=== PATIENT | male | born 1950 | race Caucasian/White ===

== ENCOUNTER 2023-01-08 11:55 | Emergency (ER) | payer OTHER ==
[2023-01-08 12:16] VITALS: BP 110/67; PULSE 63; RESP 16; TEMP 98.4; BMI 22.4
[2023-01-08] MEDS ORDERED: morphine CARPU-JECT 4 MG/1 ML DISP.SYRIN IM ONE (12:31)
[2023-01-08] MEDS ORDERED: morphine SULFATE 4 MG/ML VIAL ONE (12:34)
== END 2023-01-08 16:24 | disposition home or self-care (01) ==
LOC: FER 11:55
PROC: 2W38X1Z Immobilization of Right Upper Extremity using Splint (ICD-10-PCS; principal; 2023-01-08)
PROC: 3E023GC Introduction of Other Therapeutic Substance into Muscle, Percutaneous Approach (ICD-10-PCS; 2023-01-08)
DX: S42.321A Displaced transverse fracture of shaft of humerus, right arm, initial encounter for closed fracture (principal); W11.XXXA Fall on and from ladder, initial encounter
CPT/HCPCS: 73030-TC-RT-FY; 73060-TC-RT-FY; 99285-25

== ENCOUNTER 2023-01-14 06:11 | Day surgery (SDC) | payer OTHER ==
[2023-01-11 14:56] VITALS: BMI 22.1
[2023-01-14] MEDS ORDERED: MIDAZOLAM HCL 2 MG/2 ML SINGLE DOSE VIAL ONE (07:03)
[2023-01-14] MEDS ORDERED: ceFAZolin SODIUM 1 GM VIAL ONE ×2 (07:03)
[2023-01-14] MEDS ORDERED: DEXAMETHASONE SOD PHOSPHATE 4 MG/1 ML VIAL ONE (07:03)
[2023-01-14] MEDS ORDERED: KETOROLAC TROMETHAMINE 30 MG/1 ML VIAL ONE (07:03)
[2023-01-14] MEDS ORDERED: PROPOFOL 20 ML ONE (07:03)
[2023-01-14] MEDS ORDERED: ONDANSETRON 4 MG/2 ML VIAL ONE (07:03)
[2023-01-14] MEDS ORDERED: BUPIVACAINE HCL/PF 0.5% (5 MG/ML) 30 ML VIAL IJ ONE (07:18)
[2023-01-14] MEDS ORDERED: ACETAMINOPHEN INJECTION 100 ML IVPB ONE (07:18)
[2023-01-14] MEDS ORDERED: DEXAMETHASONE SOD PHOSPHATE/PF 10 MG/ML SDV ONE (07:18)
[2023-01-14] MEDS ORDERED: ONDANSETRON 4 MG/2 ML VIAL IVPUSH PRN (07:30)
[2023-01-14] MEDS ORDERED: ACETAMINOPHEN 325 MG TABLET (FP) PO PRN (07:30)
[2023-01-14] MEDS ORDERED: oxyCODONE HCL 5 MG TABLET PO PRN ×2 (07:30)
[2023-01-14] MEDS ORDERED: LACTATED RINGERS SOLUTION 1,000 ML IV SCH (07:30)
[2023-01-14] MEDS ORDERED: TRANEXAMIC ACID 1000 MG/10 ML VIAL ONE (08:18)
[2023-01-14 13:51] VITALS: BP 123/67; PULSE 82; RESP 20; TEMP 97.9
== END 2023-01-14 13:25 | disposition home or self-care (01) ==
LOC: FASU 06:11
PROVIDERS: ATTEND Orthopaedic Surgery Sports Medicine
PROC: 0PSC04Z Reposition Right Humeral Head with Internal Fixation Device, Open Approach (ICD-10-PCS; principal; 2023-01-14 08:33)
DX: S42.301A Unspecified fracture of shaft of humerus, right arm, initial encounter for closed fracture (principal); W11.XXXA Fall on and from ladder, initial encounter; Y93.9 Activity, unspecified; Y92.9 Unspecified place or not applicable
CPT/HCPCS: 24515; C1713; 73060-TC-RT-FY; 94760; C1776

== ENCOUNTER 2023-02-13 15:54 | Emergency (ER) | payer OTHER ==
[2023-02-13 16:38] VITALS: BMI 21.9
[2023-02-13 17:28] LABS: HEMATOCRIT 37.6 % (35.4-49); MCH 30.8 pg (25.7-33.7); MCHC 34.7 g/dl (32.0-35.9); MEAN CELL VOLUME 88.9 fl (80-96); MEAN PLT VOLUME 6.6 fl (7.5-11.1); PLATELET COUNT 439.8 10^3/uL (134-434); RBC 4.23 10^6/uL (4.00-5.60); WHITE BLOOD COUNT 15.5 10^3/uL (4.0-10.8)
[2023-02-13 17:40] LABS: INR 1.23 (0.83-1.09); PROTHROMBIN TIME (PATIENT) 14.2 SEC (9.7-13.0)
[2023-02-13 17:47] LABS: ALBUMIN 3.3 g/dl (3.4-5.0); BILIRUBIN,TOTAL 0.5 mg/dl (0.2-1); CALCIUM 9.1 mg/dl (8.5-10); CREATININE 0.6 mg/dl (0.55-1.3); POTASSIUM 4.3 mmol/L (3.5-5.1); TOT PROT 6.7 g/dl (6.4-8.2)
[2023-02-13 19:58] VITALS: BP 146/87; PULSE 80; RESP 19; TEMP 98.8
[2023-02-13] MEDS ORDERED: CEFTRIAXONE 1,000 MG in DEXTROSE 5%-WATER - 50 ML IVPB ONE (21:05)
[2023-02-13] MEDS ORDERED: cefTRIAXone SODIUM 1 GM VIAL ONE (21:05)
[2023-02-13] MEDS ORDERED: AZITHROMYCIN 500 MG TABLET PO ONE (21:07)
[2023-02-13] MEDS ORDERED: AZITHROMYCIN 500 MG TABLET ONE (21:12)
== END 2023-02-13 21:40 | disposition home or self-care (01) ==
LOC: FER 15:54
DX: J18.9 Pneumonia, unspecified organism (principal); R05.9 Cough, unspecified; R07.81 Pleurodynia; R06.00 Dyspnea, unspecified; R07.0 Pain in throat; Z20.822 Contact with and (suspected) exposure to COVID-19
CPT/HCPCS: 0241U-QW; 36415; 71046-TC-FY; 71275-TC; 80053; 85027; 85379; 85610; 93005; 99285-25; Q9967

== ENCOUNTER 2024-11-23 06:16 | Day surgery (SDC) | payer OTHER, MEDICARE ==
[2024-11-20 15:19] VITALS: BMI 22.1
[2024-11-23] MEDS ORDERED: BUPIVACAINE HCL/PF 0.25% (2.5MG/ML) 10 ML VIAL ONE (07:36)
[2024-11-23] MEDS ORDERED: BACITRACIN ZINC 15 GM TUBE TOPICAL OINTMENT ONE (07:36)
[2024-11-23] MEDS ORDERED: PROPOFOL 20 ML ONE ×5 (07:47→08:45)
[2024-11-23] MEDS ORDERED: SUCCINYLCHOLINE CHLORIDE 200 MG/10 ML SYRINGE ONE (07:47)
[2024-11-23] MEDS ORDERED: ACETAMINOPHEN INJECTION 100 ML ONE (07:56)
[2024-11-23] MEDS ORDERED: DEXTROSE 5%-0.45% SALINE 1,000 ML IV SCH (08:15)
[2024-11-23] MEDS ORDERED: PROPOFOL 40 ML ONE (08:43)
[2024-11-23 09:50] VITALS: TEMP 97
[2024-11-23 09:53] VITALS: RESP 16
[2024-11-23 11:39] VITALS: BP 143/87; PULSE 60
== END 2024-11-23 11:30 | disposition home or self-care (01) ==
LOC: FASU 06:16
PROVIDERS: ATTEND Urology
PROC: 0VB03ZX Excision of Prostate, Percutaneous Approach, Diagnostic (ICD-10-PCS; principal; 2024-11-23 08:19)
DX: R97.20 Elevated prostate specific antigen [PSA] (principal)
CPT/HCPCS: 88305-TC; 94760; J0131

== ENCOUNTER 2025-04-20 15:53 | Emergency (ER) | payer OTHER, MEDICARE ==
[2025-04-20 16:07] VITALS: BP 144/75; PULSE 78; RESP 18; TEMP 98.6; BMI 22.3
== END 2025-04-20 16:21 | disposition home or self-care (01) ==
LOC: FER 15:53
DX: S61.412A Laceration without foreign body of left hand, initial encounter (principal); W26.0XXA Contact with knife, initial encounter
CPT/HCPCS: 99282-25